=== PATIENT | male | born 1960 | race Caucasian/White ===

== ENCOUNTER 2021-09-29 13:20 | Emergency (ER) | payer OTHER, SELFPAY ==
--- NOTE | ~2021-09-29 | XR_ITS ---
EXAMINATION: XR hand LT min 3V INDICATION: Left hand pain and laceration TECHNIQUE: Three views of the left hand are obtained. COMPARISON: None available FINDINGS: There is soft tissue swelling of the fifth finger. No fracture is identified. 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 No radiopaque foreign body is seen. IMPRESSION: 1. No acute osseous abnormality identified. Reviewed, dictated and finalized at location A.
[2021-09-29 13:22] VITALS: BP 152/82; PULSE 80; RESP 18; TEMP 36.5; O2SAT 99
[2021-09-29] MEDS: TETANUS,DIPHTHERIA,AC PERTUSSIS ADULT (0.5 ML) BOOSTRIX IM (15:37)
--- NOTE | 2021-09-29 15:44 | ED.WOUNDLAC ---
HPI - Wound/Laceration General Chief Complaint: Wound/Laceration Stated Complaint: Laceration to Left Finger Time Seen by Provider: 09/29/21 15:04 History of Present Illness HPI narrative: Patient is a 60-year-old left-handed male here for evaluation of a laceration to the left pinky digit sustained about 5 hours ago. Patient was cutting sheet metal while at work. States that he covered the area but presented to the ED because the bleeding would not stop. Denies numbness, tingling, difficulty moving the finger. Related Data Allergies Allergy/AdvReac Type Severity Reaction Status Date / Time No Known Allergies Allergy Unknown Verified 09/29/21 13:24 Review of Systems Review of Systems: Gen: Denies fevers or chills Eyes: Denies eye pain or visual change ENT: Denies congestion Respiratory: Denies shortness of breath or cough CV: Denies chest pain or palpitations GI: Denies abdominal pain nausea, emesis or diarrhea denies burning, urgency, frequency or hematuria Musculoskeletal: Denies back pain or muscle pain Neuro: Denies numbness, tingling, weakness or focal weakness Skin: Reports laceration Except as documented, all other systems reviewed and negative [facility] Surgical History Surgical History Hx of carpal tunnel repair Family History Family History Father Hypertension Pacemaker Mother Breast cancer Social History Social History (Updated 07/28/21 @ 08:07 by Vandana Dey MA) Smoking status: Former smoker Tobacco type: cigarettes Second hand tobacco smoke exposure: No Smoking end date: 04/05/83 Alcohol intake: current Drinks per week: 5 Substance use: never Substance use type: does not use Gender identity (if verbalized by the patient): Male Sexual Orientation (if Verbalized by the Patient): Straight or Heterosexual Spiritual care concerns: No Agree to blood products: Yes Exam Narrative: Gen: Alert, oriented, no acute distress Eyes: EOMI, no icterus Pulm: Respirations even and unlabored, symmetric thorax expansion, no audible stridor or visible cyanosis CV: Regular rate per telemetry GI: No distension, no voluntary/involuntary guarding Neuro: AOx4, moves all extremities without apparent difficulty or weakness, follows commands Skin: Patient has a 1 cm, superficial L-shaped laceration to the ulnar aspect of his left fifth digit near the DIP with no active bleeding. FROM in digit. Brisk capillary refill. Sensation intact throughout digit. Psych: Normal mood/affect, insight/judgement good, adequate fund of knowledge, recent/remote memory intact Course Vital Signs Vital signs: Vital Signs Temperature 97.7 F 09/29/21 13:22 Pulse Rate 80 09/29/21 13:22 Respiratory Rate 18 09/29/21 13:22 Blood Pressure 152/82 H 09/29/21 13:22 Pulse Oximetry 99 09/29/21 13:22 Oxygen Delivery Room Air 09/29/21 13:22 Temperature 97.7 F 09/29/21 13:22 Pulse Rate 80 09/29/21 13:22 Respiratory Rate 18 09/29/21 13:22 Blood Pressure 152/82 H 09/29/21 13:22 Pulse Oximetry 99 09/29/21 13:22 Oxygen Delivery Room Air 09/29/21 13:22 Procedures Laceration Laceration 1: Date: 09/29/21 Time: 13:45 Site: other (l 5th digit) Side (If applicable): left Size (cm): 1 Description: linear Depth: simple, single layer ====== Skin Level ====== Skin layer closed with: steri strips Number of sutures: 5 ====== Subcutaneous Layer ====== ====== Muscle Layer ====== ====== Tendon Layer ====== Dressing: Wound copiously irrigated with normal saline. No active bleeding, no FB visualized. Laceration is superficial. Closure obtained with steri strips. MDM - Wound/Laceration MDM Narrative Medical decision making narrative: 60-year-old male here for evaluation of laceration
== END 2021-09-29 16:05 | disposition home or self-care (01) ==
PROVIDERS: Emergency Provider Emergency Medicine; PCP Family Medicine Adolescent Medicine
DX: S61.217A Laceration without foreign body of left little finger without damage to nail, initial encounter (principal); Z23 Encounter for immunization; Z87.891 Personal history of nicotine dependence; W26.8XXA Contact with other sharp object(s), not elsewhere classified, initial encounter
CPT/HCPCS: 73130; 90471; 90715; 99283

== ENCOUNTER 2021-12-01 01:06 | Day surgery (SDC) | payer OTHER, SELFPAY ==
[2021-11-14 16:02] VITALS: BMI 28.6
--- NOTE | 2021-12-01 08:54 | P.PNAN_ITS ---
Anes - Initial Pre Proc Eval Procedure: Operation Date: 12/01/21 09:30 Proposed Procedures p Screening Colonoscopy - Saul Downing MD Date/Time: 12/01/21 08:54 Surgeon: Saul Downing MD Pre Op Diagnosis: neoplasm screening Patient Data Age: 61 Gender: M Height: 1.75 m Weight: 88 kg Allergies Allergy/AdvReac Type Severity Reaction Status Date / Time No Known Allergies Allergy Unknown Verified 11/14/21 16:31 Home Medications Medication Instructions Recorded Confirmed Type lisinopril 10 mg tablet 10 mg PO DAILY 10/21/21 11/14/21 History metoprolol tartrate 25 mg tablet 25 mg PO DAILY #90 tabs 10/28/21 11/14/21 Rx Patient hx anesthesia problems: none Family hx anesthesia problems: none Results Review: All pre-operative results and documents have been reviewed as part of the pre- operative evaluation. [facility] Past Medical History Medical History (Updated 10/21/21 @ 08:35 by Cielo Ashford APRN) Low back pain Overweight Surgical History Surgical History Hx of carpal tunnel repair Family History Family History Father Hypertension Pacemaker Mother Breast cancer Social History Social History Smoking status: Former smoker Tobacco type: cigarettes Second hand tobacco smoke exposure: No Smoking end date: 04/05/83 Alcohol intake: current Drinks per week: 5 Substance use: never Substance use type: does not use Living arrangements: with family Gender identity (if verbalized by the patient): Male Sexual Orientation (if Verbalized by the Patient): Straight or Heterosexual Spiritual care concerns: No Agree to blood products: Yes Anes - Eval Final PreProcedure Day of Procedure 12/01/21 08:54 Patient weight: overweight Heart: regular rate and rhythm Lungs: clear to auscultation and normal air movement Airway: Mallampati scale class II Neurological: alert and oriented Last oral intake: >/= 8 hours ASA classification: II Emergent: no Anesthetic plan: proceed Anesthesia type and monitoring: general GIVS Results Review: All pre-operative results and documents have been reviewed as part of the pre- operative evaluation. Informed Consent: The patient's anesthetic plan and its attendant risks and benefits were discussed with the patient/family/POA. Questions were solicited and answers provided to the satisfaction of the patient/family/POA.
[2021-12-01 08:59] VITALS: BMI 28.9
[2021-12-01] MEDS: LACTATED RINGERS 1,000 ML 150 ML IV CONT (09:14)
[2021-12-01 09:15] VITALS: BP 142/80; PULSE 57; RESP 20; TEMP 36.1; O2SAT 100
--- NOTE | 2021-12-01 09:29 | P.HP_ITS ---
H&P: HPI History of Present Illness Date/Time: 12/01/21 09:29 Chief Complaint: Neoplasia screening. Narrative: This is a 61-year-old white male patient seen in evaluation at the request of primary care service. Patient referred for neoplasia screening colonoscopy. He has never had a colonoscopy before. Patient reports his current weight appetite bowel movements are normal. Patient denies abdominal pain. He has had no bleeding. Family history is significant he is uncertain but may be is father had colon polyps. Patient presents today for screening colonoscopy. Review of Systems Review of Systems: Review of systems noncontributory. [facility] Past Medical History Medical History (Updated 12/01/21 @ 09:31 by Saul Downing MD) Low back pain Overweight Surgical History Surgical History Hx of carpal tunnel repair Family History Family History Father Hypertension Pacemaker Mother Breast cancer Social History Social History Smoking status: Former smoker Tobacco type: cigarettes Second hand tobacco smoke exposure: No Smoking end date: 04/05/83 Alcohol intake: current Drinks per week: 5 Substance use: never Substance use type: does not use Living arrangements: with family Gender identity (if verbalized by the patient): Male Sexual Orientation (if Verbalized by the Patient): Straight or Heterosexual Spiritual care concerns: No Agree to blood products: Yes Meds Home Medications and Allergies Home Medications Medication Instructions Recorded Confirmed Type metoprolol tartrate 25 mg tablet 25 mg PO DAILY #90 tabs 10/28/21 12/01/21 Rx Allergies Allergy/AdvReac Type Severity Reaction Status Date / Time No Known Allergies Allergy Unknown Verified 12/01/21 08:57 Vital Signs Vital Signs - 24 hr 12/01/21 09:15 Temperature 97 F L Pulse Rate 57 L Respiratory Rate 20 Blood Pressure 142/80 H Pulse Oximetry 100 Oxygen Delivery Room Air Exam Narrative: Physical exam reveals patient to be alert. Vital signs stable. HEENT exam is unremarkable. Patient is anicteric. Lungs are clear to auscultation and percussion. Heart is without murmur or extra sounds. Abdominal exam bowel sounds present soft nontender with no organomegaly. Digital external rectal exam is normal. Assessment and Plan Assessment and plan (1) Encounter for screening colonoscopy: Code(s): Z12.11 - Encounter for screening for malignant neoplasm of colon Status: Acute Assessment and Plan: Patient presents today for screening colonoscopy. Appears to be at average risk for colon polyps. Further recommendations will be given after endoscopy.
[2021-12-01 10:03] VITALS: BP 89/56; PULSE 64; RESP 21; O2SAT 100
[2021-12-01 10:13] VITALS: BP 99/63; PULSE 60; RESP 20; O2SAT 100
[2021-12-01 10:23] VITALS: BP 116/77; PULSE 65; RESP 20; O2SAT 97
== END 2021-12-01 10:33 | disposition home or self-care (01) ==
PROVIDERS: PCP Family Medicine Adolescent Medicine; Visit Provider Internal Medicine Gastroenterology
PROC: 0DJD8ZZ Inspection of Lower Intestinal Tract, Via Natural or Artificial Opening Endoscopic (ICD-10-PCS; CPT 45378; principal; 2021-12-01 09:30)
DX: Z12.11 Encounter for screening for malignant neoplasm of colon (principal); K64.8 Other hemorrhoids; Z87.891 Personal history of nicotine dependence
CPT/HCPCS: 45378; J2704; J7120